=== PATIENT | male | born 1985 | race Caucasian/White ===

== ENCOUNTER → 2023-06-01 | Outpatient (CLI) | payer BC | END | disposition home or self-care (01) | LOC: ORTHO 10:10 | PROVIDERS: ATTEND Orthopaedic Surgery | DX: M25.511 Pain in right shoulder (principal) ==

== ENCOUNTER → 2023-06-22 | Outpatient (CLI) | payer BC | END | disposition home or self-care (01) | LOC: RAD 01:17 | PROVIDERS: ATTEND Orthopaedic Surgery | DX: M25.511 Pain in right shoulder (principal); M25.311 Other instability, right shoulder ==